=== PATIENT | female | born 1985 | race Caucasian/White ===

== ENCOUNTER → 2024-04-05 18:10 | Outpatient (REF) | payer OTHER, SELFPAY | LOC: WDC 18:10 | PROVIDERS: ATTENDING PHYSICIAN Student in an Organized Health Care Education/Training Program; FAMILY PHYSICIAN Physician Assistant Medical | DX: Z12.31 Encounter for screening mammogram for malignant neoplasm of breast (principal) | CPT/HCPCS: 77063; 77067 ==

== ENCOUNTER → 2025-04-17 18:28 | Outpatient (REF) | payer OTHER, SELFPAY | LOC: WDC 18:28 | PROVIDERS: ATTENDING PHYSICIAN Student in an Organized Health Care Education/Training Program; FAMILY PHYSICIAN Physician Assistant | DX: Z12.31 Encounter for screening mammogram for malignant neoplasm of breast (principal) | CPT/HCPCS: 77063; 77067 ==